=== PATIENT | female | born 1960 | race Caucasian/White ===

== ENCOUNTER 2017-02-03 15:11 | Emergency (ER) | payer OTHER ==
[2017-02-03 15:44] VITALS: BP 155/77
[2017-02-03] MEDS ORDERED: Cephalexin CAP* 500 MG PO ONE (16:12)
[2017-02-03] MEDS ORDERED: Phenazopyridine TAB* 100 MG PO ONE (16:12)
--- NOTE | 2017-02-03 16:14 | UC ---
Complaint Female HPI - HPI Summary HPI Summary: 56 yo female with the onset of urinary frequency and urgency yesterday evening now with some dysuria no n/v/d no f/c has chronic back pain - History Of Current Complaint Chief Complaint: UCGU Stated Complaint: BURNING FREQUENT URINARY DISCOMFORT Time Seen by Provider: 02/03/17 15:56 Hx Obtained From: Patient Onset/Duration: Gradual Onset, Lasting Hours Timing: Constant Severity Initially: Mild Severity Currently: Moderate Pain Intensity: 0 - only with urination Pain Scale Used: 0-10 Numeric Aggravating Factor(s): Urination Associated Signs And Symptoms: Negative: Fever, Back Pain, Vaginal Bleeding/ Discharge, Vaginal Discharge, Nausea, Vomiting(# Of Episodes =), Genital Swelling, Genital Blisters, Retained Foregin Body (Specify) - Allergies/Home Medications Allergies/Adverse Reactions: Allergies Allergy/AdvReac Type Severity Reaction Status Date / Time No Known Allergies Allergy Verified 02/03/17 15:44 PMH/Surg Hx/FS Hx/Imm Hx Previously Healthy: Yes Cardiovascular History: Hypertension - Surgical History Surgical History: Yes Surgery Procedure, Year, and Place: HYSTERECTOMY. NECK SURGERY - CADAVER BONE, PLATE. BLADDER SLING. VERICOSE VEINS. CARPAL TUNNEL - Family History Known Family History: Positive: Hypertension, Diabetes Negative: Blood Disorder - Social History Alcohol Use: None Substance Use Type: None Smoking Status (MU): Former Smoker Type: Cigarettes Length of Time of Smoking/Using Tobacco: 20 YEARS Have You Smoked in the Last Year: Yes Review of Systems Genitourinary: Dysuria, Frequency, Urgency Motor: Negative Neurovascular: Negative Musculoskeletal: Negative Neurological: Negative Is Patient Immunocompromised?: No All Other Systems Reviewed And Are Negative: Yes Physical Exam Triage Information Reviewed: Yes Appearance: Well-Appearing, No Pain Distress, Well-Nourished Vital Signs: Initial Vital Signs Temp 99.3 F 02/03/17 15:41 Pulse 95 02/03/17 15:41 Resp 18 02/03/17 15:41 BP 155/77 02/03/17 15:41 Pulse Ox 97 02/03/17 15:41 Vital Signs Reviewed: Yes Eyes: Positive: Conjunctiva Clear ENT: Positive: Hearing grossly normal, Pharynx normal. Negative: Nasal congestion, Nasal drainage, Trismus, Muffled/hoarse voice Neck: Positive: Supple, Nontender Respiratory: Positive: Lungs clear, Normal breath sounds, No respiratory distress, No accessory muscle use Cardiovascular: Positive: RRR, No Murmur Abdomen Description: Positive: Nontender, No Organomegaly, Soft. Negative: CVA Tenderness (R) Bowel Sounds: Positive: Present Musculoskeletal: Positive: ROM Intact, No Edema Neurological: Positive: Alert Psychological Exam: Normal Skin Exam: Normal Complaint Female Dx - Course Course Of Treatment: Udip- blood+++, leuks++. nitrite (+) - Differential Dx/Diagnosis Provider Diagnoses: acute cystitis Discharge - Discharge Plan Condition: Stable Disposition: HOME Prescriptions: Cephalexin CAP* [Keflex CAP*] 500 mg PO BID #10 cap Phenazopyridine TAB* [Pyridium TAB*] 100 mg PO TID #6 tab Patient Education Materials: Urinary Tract Infection in Women (ED) Referrals: Cristopher Espinosa MD [Primary Care Provider] - Additional Instructions: recheck for worsening symptoms recheck in 2 days if not better a urine culture is pending
== END 2017-02-03 16:30 | disposition home or self-care (01) ==
LOC: UCEAST 15:11
DX: N30.00 Acute cystitis without hematuria (principal); Z87.891 Personal history of nicotine dependence
CPT/HCPCS: 87077; 87086; 87186; 99212; A9270-GY; G0463